=== PATIENT | female | born 1950 | race Caucasian/White ===

== ENCOUNTER 2024-05-15 23:39 | Inpatient (IN) | payer MEDICARE, OTHER, SELFPAY ==
[2024-05-13 17:29] VITALS: BP 157/82
--- NOTE | 2024-05-13 17:52 | ED.PDOC.TRB ---
ED Provider Triage
-
A medical screening examination has been initiated by a qualified medical provider. Based on the assessment performed at this time, it has been determined that an emergent medical condition may exist and the patient has been informed that further
medical evaluation and possible additional diagnostic testing may be needed.
HPI: This is a medical evaluation conducted in person to initiate diagnostic evaluation and provide initial therapeutics. Please see further documentation by the treating clinician.
GENERAL: Alert , in no apparent distress
LUNGS: No acute respiratory distress
NEUROLOGICAL: Alert and oriented
SKIN: Skin intact. No visible changes.
MUSCULOSKELETAL: seated in wheelchair
able to flex right hip well, painful L hip flexion
strength seems intact B/L LE
sensation intact to gross touch
PSYCH: Normal and appropriate interaction.
73 lilly/o F chornic lower back pain adn lumbar radiculopathy/spinal stensosis, managed by dr. antonio currently
has intrathecal pump
oral break through meds
3 weeks worsening pain in same location b/l hips down backs of legs to thighs
typical pattern
went to [facility] and got 2 injections for trigger points
has not had improvement
no new urinary incontinenfce from baseline stress incontinence
pt does have strength and sensation in her legs
do not suspect cuada equina
likely acute exac of chornic spinal stenosis pain
will order some screening xrays
pt has been doing some packing getting ready to move
[2024-05-13 19:55] LABS: Urine Albumin Negative (Neg - Trace); Urine Bilirubin Negative (Negative); Urine Character Clear (Clear); Urine Color Yellow; Urine Glucose Negative (Negative); Urine Ketone Negative (Negative); Urine Leukocyte 1+ (Negative); Urine Nitrite Negative (Negative); Urine Occult Blood Trace (Negative); Urine Specific Gravity 1.015 (<1.030); Urine Urobilinogen Negative (Neg - 1+)
[2024-05-13 20:24] LABS: Urine Bacteria Few (Negative); Urine Red Blood Cell 0-2 /HPF (0-2); Urine Squamous Cell >30 /LPF (Few)
--- NOTE | 2024-05-13 20:30 | ED.GENMED ---
History of Present Illness
General
Chief Complaint: Gait Dysfunction
Source: patient
Exam Limitations: none
Time Seen by Provider: 05/13/24 19:40
Nursing documentation reviewed up to this point in time: agreed with
History of Present Illness
History of Present Illness:
Patient is a 73-year-old female with chronic back pain who follows with Dr. Narvaez. She started with pain behind her posterior thighs and buttocks for the past 2 and half weeks. She saw Dr. Narvaez 1 week ago and was given trigger point
injections however symptoms have not improved. She now feels that her legs cannot hold her. She also complains of pain she nor in her bilateral thighs and buttocks however the pain stops at her knees She normally does not walk with a walker
however now has been using walker as she feels that she is going to fall.. She denies any bowel or bladder incontinence. She denies any numbness tingling in her legs. She denies any urinary dysuria however has noticed increased frequent
urination.
Past History
Past History
ED Past Medical History: Arrthythmia (afib), Asthma, CAD, CHF, COPD, GERD, Psychiatric and Other (chronic back pain with multiple compression fractures on morphine pump, followed by pain management, headaches, bipolar, depression, difficulty with
balance, CPAP, asthma, GERD, DJD,)
ED Past Surgical History: Orthopedic
Social History
Tobacco: Non-smoker
Alcohol: None
Review of Systems
Review of Systems
Allergies reviewed?: Yes
All Other Systems: ROS reviewed and negative except as documented in HPI and ROS
Constitutional: Reports no symptoms; Denies fever, fatigue or chills
Respiratory: Reports no symptoms
Cardiac: Reports no symptoms
ABD/GI: Reports no symptoms
Musculoskeletal: Reports other (b/l leg pain/weakness)
Skin: Reports no symptoms
Neurological: Denies numbness
Psychiatric: Reports no symptoms
Phy Exam
General Physical Exam
General Presentation: no apparent distress
General age: appears stated age
General Skin: warm and dry
General Habitus: elderly
General Mental: alert
General Hydration: appears well hydrated
Neurological Exam
Neurological Exam: alert, oriented x3 and other (Patient with normal distal sensation to buttocks bilateral lower extremities able to lift both legs off the stretcher normal patellar reflexes bilaterally)
[place] Coma Scale
Eye Opening: Spontaneous
Verbal Response: Oriented
Motor Response: Obeys Commands
GCS Total Score: 15
Musculoskeletal Exam
Musculoskeletal Exam: full ROM
Skin Exam
Skin Exam: normal color and warm/dry
Psychiatric Exam
Psychiatric Exam: normal mood/affect
Course
Orders/Labs/Results
Orders:
Orders
05/13/24 17:51
CR Hips TADEO w/wo Pel Min 5 Vw* Urgent
Reason For Exam: b/l hip pain
Include a pelvis x-ray?: Yes
Lumbar Spine Complete, 4 View [CR Lumbar Spine Comp Min 4 Vw*] Urgent
Comment:
Reason For Exam: lower back pain/radiculopathy worse than usual
05/13/24 19:26
Urinalysis Reflex To Culture Urgent
Date Specimen was Collected: 05/13/24
Time Specimen was Collected: 19:24
Urine Microscopic Reflex Cult Urgent
Urine Culture Urgent
ANIBAL Source: U
Specimen Description:
Date Specimen was Collected: 05/13/24
Time Specimen was Collected: 19:24
05/13/24 22:03
Complete Blood Count/With Diff Urgent
Comprehensive Metabolic Panel Urgent
05/13/24 23:38
Admit/Transfer Patient As Directed
Co-Sign Provider:
Level of Care: Observation services
Assign to:: Medical/Surgical
Physician / Group: [email or web address]
Diagnosis: lumbar radiculopathy
PRN Pain Medication Management As Directed
May give lesser potent ordered pain med per pt: Yes
preference::
Protocol:: Medication orders for pain may be administered in a
manner that supports deferring to patient preference
when the pt is:
- Requesting an ordered lesser potent pain medication.
Least to most potent pain medications are defined
as: acetaminophen < NSAID < tramadol < opioids
(morphine, oxycodone, hydromorphone).
- Requesting a lesser dose of the same medication IF
ORDERED.
- Requesting a less intrusive route of administration
if both routes are prescribed by the provider (PO <
IV).
05/13/24 23:39
Code Status As Directed
Resuscitation Status: Do not resuscitate
Reached after discussion with pt or family/Healthcare POA: Yes
DNR Bracelet Application ONCE
05/14/24 01:49
HYDROmorphone [Dilaudid] 0.5 mg IV Q4HPRN PRN
Loratadine [Claritin] 10 mg PO QPMPRN PRN
Meclizine [Antivert] 25 mg PO Q8HPRN PRN
Polyethylene Glycol Powder [Miralax] 17 grams PO DAILYPRN PRN
Simethicone [Mylicon] 80 mg PO TIDPRN PRN
phlkrio-macedermdqoki-tgyjyxbs [Excedrin Migraine] 1 tablet PO Q6HPRN PRN
ferric carboxymaltose [Injectafer] 750 mg IV UD
oxycodone-acetaminophen 1 tablet PO Q8HPRN PRN
05/14/24 01:49
MR Lumbar Without Contrast Routine
Comment:
Reason For Exam: radiculopathy sxs
Recent pill cam endoscopy?: No
Activity As Directed
Activity Level: As Tolerated
Vital Signs As Directed
Frequency: Per unit guidelines
Ot Eval And Treat Routine
Pt Eval And Treat Routine
Activity Level: As Tolerated
DX Deep Vein Thrombosis Video Routine
05/14/24 04:29
Complete Blood Count/No Diff IN AM
Comprehensive Metabolic Panel IN AM
05/14/24 Breakfast
Regular
At Your Request: Full Participation
Does patient need a safe tray?: No
05/14/24 08:00
Desvenlafaxine Succinate [Pristiq] 50 mg PO DAILY
Heparin 5,000 units SC Q12
Lamotrigine [Lamictal] 150 mg PO BID
Lidocaine [Lidocaine 4% Patch] 1 patch TOPICAL DAILY
Apply Lidocaine patch(s) to:: lower back/butt
Pantoprazole [Protonix] 40 mg PO DAILY
fluticasone propionate 1 spray NASAL DAILY
05/14/24 22:00
Famotidine [Pepcid] 20 mg PO HS
Quetiapine Fumarate [Seroquel] 50 mg PO HS
Abnormal Lab Results
05/13/24 05/13/24
19:26 22:03
WBC 12.8 H 10^3/uL
(4.8-10.8)
Abs Immat Gran (auto) 0.1 H 10^3/uL
(0-0.05)
Absolute Neuts (auto) 10.1 H 10^3/uL
(1.4-6.5)
Absolute Monos (auto) 1.0 H 10^3/uL
(0.1-0.6)
Neutrophils % 78.9 H %
(42.2-75.2)
Lymphocytes % 12.4 L %
(20.5-51.1)
Carbon Dioxide 31 H mmol/L
(22-30)
BUN 19 H mg/dl
(7-17)
Glucose 115 H mg/dl
(70-99)
Alkaline Phosphatase 148 H U/L
(38-126)
Ur Occult Blood Reflex Trace A
(Negative)
Leukocyte Esterase Rfl 1+ A
(Negative)
Urine Bacteria (Reflex) Few A
(Negative)
05/13/24 22:03
05/13/24 22:03
Vital Signs
Initial and Last Documented VS:
Initial Vital Signs
Temp Pulse Resp BP Pulse Ox
98.0 F 66 16 157/82 98
05/13/24 17:29 05/13/24 17:29 05/13/24 17:29 05/13/24 17:29 05/13/24 17:29
Last Documented Vital Signs
Temp Pulse Resp BP Pulse Ox
97.7 F 77 18 140/70 98
05/14/24 15:00 05/14/24 15:00 05/14/24 15:00 05/14/24 15:00 05/14/24 15:00
Cryptologist consulted with Physician
Cryptologist consulted with physician?: Yes
Name of Physician Consulted: Gibson
MDM/Problems Addressed
Differential Diagnosis Includes:
Not limited to chronic back pain radiculopathy
MDM/Problems Addressed:
Patient is a 73-year-old female with chronic back pain pain pump followed by pain management Dr. Narvaez presents to the ER complaining of bilateral thigh weakness/leg weakness for the past 2 and half weeks. She now feels that her legs cannot
carry her. On exam she has no obvious deficits and does have normal reflexes normal sensation however is very unstable unsteady on her feet despite a walker. She presently lives alone. X-rays reviewed shows chronic compression deformities of
T12-L1 and L5 similar to prior prior L3-L4 posterior spinal fusion without evidence of hardware complication; hip x-ray negative
Chronic conditions affecting care:
Chronic back pain
*Pulse Oximetry
Patient hypoxic: no
*Critical Care Note
Total Time (30-74mins, 75-104mins- exclusive of procedures): Not Applicable
ED Attending Note
-
Portions of this chart may have been created with voice recognition software.� Occasional wrong word or��sound alike� substitutions may have occurred due to the inherent limitations of voice recognition software.
Discharge Plan
Departure
Patient Disposition: Admit
Date of Disposition: 05/13/24
Time of Disposition: 21:34
Admit to: Med/Surg
Admit to doctor: hospitalist
Presentation/result/management discussed w/ accepting MD/DO: Hospitalist
Patient with high blood pressure during this ER visit?: Yes
Condition: Fair
Covid-19: Not Applicable
Discharge Problem:
Bilateral leg weakness, leg pain, Back pain
Interventions
Interventions:
*Risk Screen - Suicide Last Done: 05/14/24 01:45
*General Assessment Last Done: 05/13/24 19:10
*Neglect/Abuse Screening Last Done: 05/13/24 19:10
ED- Fall Risk Assessment Last Done: 05/13/24 19:10
*ED COVID-19 Vaccine History Last Done: 05/14/24 01:45
*Nursing Disposition Last Done: 05/14/24 01:50
ED- Neurological Assessment Last Done: 05/13/24 19:10
ED-Musculoskeletal Assessment Last Done: 05/13/24 19:10
ED Swallowing Screen Last Done: 05/13/24 19:15
Discharge Date and Time
Discharge Date/Time: 05/14/24 01:50
[2024-05-13 20:45] VITALS: BP 162/87
[2024-05-13 22:35] LABS: % Basophils 0.2 % (0-2); % Eosinophils 0.5 % (0-6); % Immature Granulocytes 0.5 % (0-0.5); % Lymphocytes 12.4 % (20.5-51.1); % Monocytes 7.5 % (1.7-9.3); % Neutrophils 78.9 % (42.2-75.2); Absolute Eosinophils 0.1 10^3/uL (0-0.7); Absolute Immature Granulocytes 0.1 10^3/uL (0-0.05); Absolute Lymphocytes 1.6 10^3/uL (1.2-3.4); Absolute Neutrophils 10.1 10^3/uL (1.4-6.5); Hematocrit 39.1 % (37.0-47.0); Hemoglobin 13.1 g/dL (12.0-16.0); Mean Corp Hgb Conc. 33.5 g/dL (33.0-37.0); Mean Corpuscular Volume 86.7 fL (81.0-99.0); Mean Platelet Volume 8.5 fL (7.4-10.4); Nucleated Red Blood Cells % 0 %; Platelet Count 249 10^3/uL (130-400); Red Blood Cell Count 4.51 10^6/uL (4.20-5.40); White Blood Cell Count 12.8 10^3/uL (4.8-10.8)
[2024-05-13 22:54] LABS: ALT (SGPT) 20 U/L (0-35); AST (SGOT) 22 U/L (14-36); Albumin 4.4 g/dl (3.5-5.0); Alkaline Phosphatase 148 U/L (38-126); Blood Urea Nitrogen 19 mg/dl (7-17); Calcium 9.5 mg/dl (8.4-10.2); Carbon Dioxide 31 mmol/L (22-30); Chloride 100 mmol/L (98-107); Glucose 115 mg/dl (70-99); Potassium 4.3 mmol/L (3.5-5.1); Sodium 139 mmol/L (135-145); Total Bilirubin 0.8 mg/dl (0.2-1.3); eGFR > 60.00
--- NOTE | 2024-05-13 23:42 | HPS.HSE ---
Family Physician
-
Family Physician: Dana Pitts
Chief Complaint
-
butt pain
History of Present Illness
73-year-old female past medical history of chronic back pain status post laminectomy with morphine pump follows with Dr. Narvaez, iron deficiency anemia, GERD, asthma, obstructive sleep apnea, bipolar disorder, presenting with severe posterior
thigh and buttock pain for the past 2 and a 1/2 weeks. She was given Medrol Dosepak without improvement in pain. She has chronic lower back pain which is at baseline and manageable. She saw Dr. Narvaez 1 week ago and was given trigger point
injections but symptoms have not improved. She now feels that her legs cannot hold her. She normally does not require assistance to walk but has been using a walker since she feels like she is going to fall. Denies any bowel or bladder
incontinence. Denies any numbness or tingling in her legs. She has noticed increased urinary frequency. She denies any fevers or chills.
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
Medical History
Past Medical History
Past Medical History: Reports Other (chronic back pain status post laminectomy with morphine pump follows with Dr. Narvaez, iron deficiency anemia, GERD, asthma, obstructive sleep apnea, bipolar disorder,)
Past Surgical History: Reports Other (Orthopedic)
Social History
Tobacco: Non-smoker
Alcohol: None
Drug: None
Family History
Family History: Not pertinent
Allergies / Home Medications
Allergies reflects when Allergies were last updated in [facility].
Home Medications with original date entered in [facility]
Allergy/Medication List:
Allergies
Allergy/AdvReac Type Severity Reaction Status Date / Time
adhesive tape Allergy BLISTERS Verified 05/13/24 17:32
albuterol Allergy FEEL FAINT Verified 05/13/24 17:32
amoxicillin Allergy >10YRS AGO Verified 05/13/24 17:32
Hives on
elbows no
anaphylaxis.
Tolerates
ceftin
budesonide [From Symbicort] Allergy jitters, Verified 05/13/24 17:32
TREMORS
clarithromycin Allergy Unknown Verified 05/13/24 17:32
erythromycin base Allergy Unknown Verified 05/13/24 17:32
fluticasone Allergy Triggers Verified 05/13/24 17:32
[From Advair Diskus] Headache
formoterol [From Symbicort] Allergy jitters Verified 05/13/24 17:32
ketamine Allergy DIFFICULTY Verified 05/13/24 17:32
WAKING
salmeterol Allergy migrane Verified 05/13/24 17:32
[From Advair Diskus]
albuterol Allergy FEELS FAINT Uncoded 05/13/24 17:32
nasocort Allergy migraine Uncoded 05/13/24 17:32
seravent Allergy migraine Uncoded 05/13/24 17:32
Home Medications
Intrathecal Morphine 0.47511 mg intrathecal DAILY Pain 11/21/19
loratadine 10 mg tablet 10 mg PO QPMPRN PRN allergy symp 11/21/19
famotidine 20 mg tablet 20 mg PO HS Gastrointestinal issue 12/16/20
omeprazole 40 mg capsule,delayed release 40 mg PO DAILY Gastrointestinal issue 12/16/20
denosumab 60 mg/mL subcutaneous syringe (Prolia) 60 mg SC [id number] 01/06/22
ferric carboxymaltose 50 mg iron/mL intravenous solution (Injectafer) 750 mg IV UD 01/06/22
polyvinyl alcohol-povidone (PF) 1.4 %-0.6 % eye drops in a dropperette (Refresh Classic (PF)) 1 - 2 drops BOTH EYES QIDPRN PRN dry eyes 01/06/22
simethicone 80 mg chewable tablet (Gas Relief 80 (simethicone)) 80 mg PO TIDPRN PRN gas relief 01/06/22
lcdvvcf-fmtygvwfjehgb-rilesdey 250 mg-250 mg-65 mg tablet (Excedrin Migraine) 1 tab PO Q6HPRN PRN migraine 05/13/24
desvenlafaxine 50 mg tablet,extended release 24 hr 50 mg PO DAILY 05/13/24
fluticasone propionate 50 mcg/actuation nasal spray,suspension 1 spray intranasal DAILY 05/13/24
lamotrigine 150 mg tablet 150 mg PO BID 05/13/24
meclizine 25 mg tablet 25 mg PO Q8HPRN PRN nausea or vertigo 05/13/24
oxycodone-acetaminophen 7.5 mg-325 mg tablet 1 tab PO Q8HPRN PRN severe pain 05/13/24
polyethylene glycol 3350 17 gram oral powder packet 17 grams PO DAILYPRN PRN constipation 05/13/24
quetiapine 50 mg tablet 50 mg PO HS 05/13/24
Review of Systems
-
History Source: Patient
A 12 point ROS was completed and negative except as noted: Yes
Constitutional: Reports No Symptoms
EENT: Reports No Symptoms
Respiratory: Reports No Symptoms
Cardiac: Reports No Symptoms
Abdomen/GI: Reports No Symptoms
: Reports No Symptoms
Musculoskeletal: Reports See HPI
Skin: Reports No Symptoms
Neurological: Reports No Symptoms
Endocrine: Reports No Symptoms
Hematologic/Lymphatic: Reports No Symptoms
Psych: Reports No Symptoms
Physical Exam
Vital Signs
Vital Signs
Temp Pulse Resp BP Pulse Ox
98.0 F 63 16 162/87 99
05/13/24 17:29 05/13/24 20:45 05/13/24 20:45 05/13/24 20:45 05/13/24 20:45
Physical Exam
General: Well Developed, Well Nourished and No Apparent Distress
HEENT: NormoCephalic, Moist mucous membranes and Atraumatic
Respiratory: Clear
Cardiac: S1/S2 and Regular Rhythm; No Murmur or Rub
GI: Soft, Non Tender, Non Distended and Normal Bowel Sounds; No Organomegaly
Rectal: Deferred by Provider
Musculoskeletal: No Clubbing, No Cyanosis and No Edema
Skin: No Rash
Neuro: Nonfocal/grossly intact
Laboratory Results
-
05/13/24 22:03
05/13/24 22:03
Laboratory Results
Total Bilirubin 0.8 mg/dl (0.2-1.3) 05/13/24 22:03
AST 22 U/L (14-36) 05/13/24 22:03
ALT 20 U/L (0-35) 05/13/24 22:03
Alkaline Phosphatase 148 U/L (38-126) H 05/13/24 22:03
Data Reviewed
-
Lab Data: Labs Reviewed by me
Old Records: Reviewed
Impression/Plan
-
IMPRESSION:
PLAN:
# Acute on chronic bilateral lumbar radicular pain with ambulatory dysfunction
# Chronic back pain status post laminectomy/spinal fusion/morphine pump
-Lumbar x-ray shows compression deformities of T12, L1, L5 vertebral body similar to prior, prior L3-L4 posterior spinal fusion without evidence of hardware complication
-Continue Percocet
-IV Dilaudid for breakthrough pain
-Lidocaine patch
-UA negative for UTI
-MRI lumbar spine was recommended by Dr. Narvaez, however patient concerned that she cannot stay still for accurate MRI results, but can attempt tomorrow
-PT/OT
Iron deficiency anemia
GERD
-Continue Pepcid, omeprazole
Asthma/COPD
Obstructive sleep apnea
Bipolar disorder
-Continue desvenlafaxine, Lamictal, Seroquel
Chronic constipation secondary to opiates
-Continue bowel regimen
DNR/DNI
DVT prophylaxis�heparin
Regular diet
[2024-05-14] VITALS (7 sets, daily range): BP systolic 140–184; BP diastolic 70–83; PULSE 76–90; O2SAT 98; BMI 33.3
--- NOTE | 2024-05-14 02:59 | PTCARENOTE ---
01:45 pt re'cd from ER , able to transfer from bed to recliner with the assist device walker (her own ).On assessment on left lower back palpated an internal pain pump. vs WNL, pt oriented to unit.
[2024-05-14 06:20] LABS: Hemoglobin 13.4 g/dL (12.0-16.0); Mean Corp Hgb Conc. 33.5 g/dL (33.0-37.0); Mean Corpuscular Hgb 29.6 pg (27.0-31.0); Mean Corpuscular Volume 88.3 fL (81.0-99.0); Mean Platelet Volume 8.7 fL (7.4-10.4); Platelet Count 246 10^3/uL (130-400); Red Blood Cell Count 4.53 10^6/uL (4.20-5.40); Red Cell Dist. Width 12.9 % (11.5-14.5); White Blood Cell Count 11.3 10^3/uL (4.8-10.8)
[2024-05-14 06:48] LABS: ALT (SGPT) 20 U/L (0-35); AST (SGOT) 22 U/L (14-36); Albumin 4.5 g/dl (3.5-5.0); Alkaline Phosphatase 164 U/L (38-126); Blood Urea Nitrogen 17 mg/dl (7-17); Calcium 9.3 mg/dl (8.4-10.2); Carbon Dioxide 24 mmol/L (22-30); Chloride 102 mmol/L (98-107); Estimated Creatinine Clearance 91 ml/min; Glucose 112 mg/dl (70-99); Potassium 4.3 mmol/L (3.5-5.1); Sodium 140 mmol/L (135-145); Total Protein 6.9 g/dl (6.3-8.2); eGFR > 60.00
--- NOTE | 2024-05-14 07:37 | W.PN.HOSP.TC ---
Today's Communication/Plan
-
pending MRI, discussed with MRI dept, anesthesia assistance with MRI requested
pain control
PT/OT
Assessment / Plan
Assessment / Plan
Physical Exam
General: Obese mild mod Distress due to pain since improved with pain meds, comfortable
HEENT: NormoCephalic, Moist mucous membranes and Atraumatic
Respiratory: Clear
Cardiac: S1/S2 and Regular Rhythm; No Murmur or Rub
GI: Soft, Non Tender, Non Distended and Normal Bowel Sounds; No Organomegaly
Musculoskeletal: No Clubbing, No Cyanosis and No Edema, left sided back palpable morphine pump no significant erythema tenderness
Skin: No Rash
Neuro: Nonfocal/grossly intact
HPI 73-year-old female past medical history of chronic back pain status post laminectomy with morphine pump follows with Dr. Narvaez, iron deficiency anemia, GERD, asthma, obstructive sleep apnea, bipolar disorder, presenting with severe posterior
thigh and buttock pain for the past 2 and a 1/2 weeks. She was given Medrol Dosepak without improvement in pain. She has chronic lower back pain which is at baseline and manageable. She saw Dr. Narvaez 1 week ago and was given trigger point
injections but symptoms have not improved. She now feels that her legs cannot hold her. She normally does not require assistance to walk but has been using a walker since she feels like she is going to fall. Denies any bowel or bladder
incontinence. Denies any numbness or tingling in her legs. She has noticed increased urinary frequency. She denies any fevers or chills. 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
# Acute on chronic bilateral lumbar radicular pain with ambulatory dysfunction
# Chronic back pain status post laminectomy/spinal fusion/morphine pump
-Lumbar x-ray shows compression deformities of T12, L1, L5 vertebral body similar to prior, prior L3-L4 posterior spinal fusion without evidence of hardware complication
-home Percocet not available with same dosage proportions in hospital, medication was hence split, tylenol 325 mg made scheduled Q4HWA and oxycodone 7.5 mg Q8HPRN
-IV Dilaudid for breakthrough pain
-Lidocaine patch
-UA negative for UTI
-MRI lumbar spine with anesthesia assistance requested, per patient has difficulty lying flat for MRI and light sedation has been attempted before without success.
-PT/OT
-neurosurgery eval
Iron deficiency anemia
GERD
-Continue Pepcid, omeprazole
Asthma/COPD
Obstructive sleep apnea
Bipolar disorder
-Continue desvenlafaxine, Lamictal, Seroquel
Chronic constipation secondary to opiates
-Continue bowel regimen
PT/OT
DNR/DNI
DVT prophylaxis�heparin
Regular diet
I spent a total of 50 minutes with the patient or on the floor. More than 50% of this time involved counseling and coordination of care.
Anticipated Discharge: 24 - 48 hours
Subjective/Interval History
-
Date of Service: May 14, 2024
Patient shaking uncomfortable due to pain. Since improved with pain meds oxycodone and dilaudid. Continues to endorse weakness lower ext's concern legs will give out. Denies numbness. Endorses urinary incontinence but reports this has been
present since her spine surgery 5 years ago.
Objective Data
-
Labs:
Laboratory Results
05/13/24 05/14/24
22:03 04:29
WBC 12.8 H 11.3 H
Hgb 13.1 13.4
Hct 39.1 40.0
Plt Count 249 246
Sodium 139 140
Potassium 4.3 4.3
Chloride 100 102
Carbon Dioxide 31 H 24
BUN 19 H 17
Creatinine 0.8 0.7
Glucose 115 H 112 H
Calcium 9.5 9.3
Total Bilirubin 0.8 1.0
AST 22 22
ALT 20 20
Alkaline Phosphatase 148 H 164 H
Vital Signs:
Vital Signs
Temp Pulse Resp BP Pulse Ox
98.5 F 54 18 140/78 99
05/14/24 02:01 05/14/24 02:01 05/14/24 02:01 05/14/24 02:01 05/14/24 02:01
I&O
05/13/24 05/14/24 05/15/24
06:59 06:59 06:59
Intake Total 240 / 240
Balance 240 / 240
[2024-05-14] MEDS: HEPARIN 5000 UNITS SC (08:18)
[2024-05-14] MEDS: LIDOCAINE 4% PATCH 1 PATCH TOPICAL (08:18)
[2024-05-14] MEDS: PRISTIQ 50 MG PO (08:18)
[2024-05-14] MEDS: LAMICTAL 150 MG PO ×2 (08:18→19:37)
[2024-05-14] MEDS: PROTONIX 40 MG PO (08:19)
[2024-05-14] MEDS: ROXICODONE 7.5 MG PO ×2 (09:41→18:12)
[2024-05-14] MEDS: DILAUDID 0.5 MG IV (10:06)
--- NOTE | 2024-05-14 11:02 | CM ---
CM met with pt bedside
Pt resides alone in a 1SH with [address] at [address] [address]
Pt is independent with her ADLs
She does not use an AD throughout home, in community utilizes walking sticks
Pt recently closed to [facility]
Pt notes no financial insecurities
PCP- Dana Pitts
Rx- [facility] [address]
Pt has a new POA/friend Lynn Solares who is currently in [place] on a trip
Updated contact info provided to medical unit secretary
Copy of POA at home
PT/OT orders pending
Anticipate home with [facility]
Pt plans to move to [facility] on 06/14/24
Pt is OBS- [facility] verbally reviewed
Copy provided
Discharge Disposition- home, likely with service through [facility]
[2024-05-14] MEDS: TYLENOL 325 MG PO ×2 (12:00→16:39)
[2024-05-14] MEDS: HEPARIN SC (20:21)
[2024-05-14] MEDS: TYLENOL PO (20:21)
[2024-05-14] MEDS: PEPCID 20 MG PO (21:15)
[2024-05-14] MEDS: SEROQUEL 50 MG PO (21:15)
--- NOTE | 2024-05-14 21:35 | PTCARENOTE ---
pt refused sq heparin and simon Tylenol. Pt verbalizes she understands education but expresses she is walking and does not want meds.
[2024-05-15] MEDS: TYLENOL PO ×3 (00:39→20:21)
[2024-05-15] MEDS: MIRALAX 17 GRAMS PO (05:13)
[2024-05-15 06:00] VITALS: BMI 33.2
--- NOTE | 2024-05-15 06:26 | PTCARENOTE ---
pt has declined her simon Tylenol throughout the night, denies this am needing PRN Dilaudid or Percocet per pt she wants miralax for constipation and wants to hold off on pain meds. Pt did sleep well throughout the night, ambulating to restroom x3
with rw and stand by assist.
--- NOTE | 2024-05-15 07:30 | W.PN.HOSP.TC ---
Today's Communication/Plan
-
pain control
PT/OT appreciated home health, script provided case mgmt for [facility]
npo after midnight for MRI w/ sedation
possible neurosurgery eval pending MRI results
Assessment / Plan
Assessment / Plan
Physical Exam
General: Obese mild mod Distress due to pain since improved with pain meds, comfortable
HEENT: NormoCephalic, Moist mucous membranes and Atraumatic
Respiratory: Clear
Cardiac: S1/S2 and Regular Rhythm; No Murmur or Rub
GI: Soft, Non Tender, Non Distended and Normal Bowel Sounds; No Organomegaly
Musculoskeletal: No Clubbing, No Cyanosis and No Edema, left sided back palpable morphine pump no significant erythema tenderness
Skin: No Rash
Neuro: Nonfocal/grossly intact
HPI 73-year-old female past medical history of chronic back pain status post laminectomy with morphine pump follows with Dr. Narvaez, iron deficiency anemia, GERD, asthma, obstructive sleep apnea, bipolar disorder, presenting with severe posterior
thigh and buttock pain for the past 2 and a 1/2 weeks. She was given Medrol Dosepak without improvement in pain. She has chronic lower back pain which is at baseline and manageable. She saw Dr. Narvaez 1 week ago and was given trigger point
injections but symptoms have not improved. She now feels that her legs cannot hold her. She normally does not require assistance to walk but has been using a walker since she feels like she is going to fall. Denies any bowel or bladder
incontinence. Denies any numbness or tingling in her legs. She has noticed increased urinary frequency. She denies any fevers or chills. 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
# Acute on chronic bilateral lumbar radicular pain with ambulatory dysfunction
# Chronic back pain status post laminectomy/spinal fusion/morphine pump
-Lumbar x-ray shows compression deformities of T12, L1, L5 vertebral body similar to prior, prior L3-L4 posterior spinal fusion without evidence of hardware complication
-home Percocet not available with same dosage proportions in hospital, medication was hence split, tylenol 325 mg made scheduled Q4HWA and oxycodone 7.5 mg Q8HPRN
-IV Dilaudid for breakthrough pain switched to PO dilaudid 1mg
-Lidocaine patch
-UA negative for UTI
-MRI lumbar spine with anesthesia assistance requested, per patient has difficulty lying flat for MRI and light sedation has been attempted before without success.
-PT/OT appreciated home health
-discussed with neurosurgery, luann pending MRI results
-NPO after midnight for MRI w/ sedation 05/16
Iron deficiency anemia
GERD
-Continue Pepcid, omeprazole
Asthma/COPD
Obstructive sleep apnea
Bipolar disorder
-Continue desvenlafaxine, Lamictal, Seroquel
Chronic constipation secondary to opiates
-Continue bowel regimen
PT/OT
DNR/DNI
DVT prophylaxis�heparin
Regular diet
I spent a total of 40 minutes with the patient or on the floor. More than 50% of this time involved counseling and coordination of care.
Anticipated Discharge: 24 - 48 hours
Subjective/Interval History
-
Date of Service: May 15, 2024
Pain control improved. Continues to endorse weakness lower ext's though able to participate with PT/OT using rolling walker. Home health recommended
Objective Data
-
Labs:
Laboratory Results
05/15/24
06:36
WBC Pending
Hgb Pending
Hct Pending
Plt Count Pending
Sodium Pending
Potassium Pending
Chloride Pending
Carbon Dioxide Pending
BUN Pending
Creatinine Pending
Glucose Pending
Calcium Pending
Vital Signs:
Vital Signs
Temp Pulse Resp BP Pulse Ox
98.3 F 67 16 159/83 95
05/14/24 23:10 05/14/24 23:10 05/14/24 23:10 05/14/24 23:10 05/14/24 23:10
I&O
05/14/24 05/15/24 05/16/24
06:59 06:59 06:59
Intake Total 240 / 240 1560 / 1560
Balance 240 / 240 1560 / 1560
[2024-05-15 07:44] VITALS: BP 132/72
[2024-05-15 07:44] LABS: Hematocrit 40.6 % (37.0-47.0); Hemoglobin 13.6 g/dL (12.0-16.0); Mean Corp Hgb Conc. 33.5 g/dL (33.0-37.0); Mean Corpuscular Hgb 28.9 pg (27.0-31.0); Mean Corpuscular Volume 86.2 fL (81.0-99.0); Mean Platelet Volume 8.8 fL (7.4-10.4); Platelet Count 276 10^3/uL (130-400); Red Blood Cell Count 4.71 10^6/uL (4.20-5.40); Red Cell Dist. Width 13.2 % (11.5-14.5)
[2024-05-15 08:05] LABS: Blood Urea Nitrogen 22 mg/dl (7-17); Calcium 9.5 mg/dl (8.4-10.2); Carbon Dioxide 25 mmol/L (22-30); Chloride 103 mmol/L (98-107); Estimated Creatinine Clearance 80 ml/min; Glucose 123 mg/dl (70-99); Magnesium 2.3 mg/dl (1.6-2.3); Phosphorus 4.7 mg/dl (2.5-4.5); Potassium 4.4 mmol/L (3.5-5.1); Sodium 142 mmol/L (135-145); eGFR > 60.00
[2024-05-15] MEDS: ROXICODONE 7.5 MG PO ×3 (09:26→22:56)
[2024-05-15] MEDS: LIDOCAINE 4% PATCH 1 PATCH TOPICAL (09:28)
[2024-05-15] MEDS: PROTONIX 40 MG PO (09:28)
[2024-05-15] MEDS: TYLENOL 325 MG PO ×3 (09:29→16:51)
[2024-05-15] MEDS: HEPARIN SC ×2 (09:29→20:21)
[2024-05-15] MEDS: PRISTIQ 50 MG PO (09:29)
[2024-05-15] MEDS: LAMICTAL 150 MG PO ×2 (09:29→20:21)
--- NOTE | 2024-05-15 10:12 | CM ---
Patient seen bedside.
PT/OT recommending home with therapy.
Spoke with [facility], they requested a script.
TT to MD.
Plan: home with [facility] (known to them).
Patient drove to the hospital.
[facility]- please fax script for PT/OT
[2024-05-15 15:57] VITALS: BP 130/66
[2024-05-15 22:10] VITALS: BP 137/70
[2024-05-15] MEDS: PEPCID 20 MG PO (22:39)
[2024-05-15] MEDS: SEROQUEL 50 MG PO (22:39)
[2024-05-16] VITALS (8 sets, daily range): BP systolic 132–148; BP diastolic 69–86; BMI 33.4
[2024-05-16] MEDS: TYLENOL PO ×5 (01:09→17:54)
[2024-05-16] MEDS: ROXICODONE 7.5 MG PO ×3 (05:57→20:04)
[2024-05-16 07:12] LABS: Hematocrit 39.1 % (37.0-47.0); Hemoglobin 13.1 g/dL (12.0-16.0); Mean Corp Hgb Conc. 33.5 g/dL (33.0-37.0); Mean Corpuscular Hgb 30.1 pg (27.0-31.0); Mean Corpuscular Volume 89.9 fL (81.0-99.0); Mean Platelet Volume 8.6 fL (7.4-10.4); Platelet Count 249 10^3/uL (130-400); Red Blood Cell Count 4.35 10^6/uL (4.20-5.40); Red Cell Dist. Width 13.1 % (11.5-14.5); White Blood Cell Count 9.3 10^3/uL (4.8-10.8)
[2024-05-16 07:41] LABS: Blood Urea Nitrogen 25 mg/dl (7-17); Calcium 9.4 mg/dl (8.4-10.2); Carbon Dioxide 29 mmol/L (22-30); Chloride 103 mmol/L (98-107); Estimated Creatinine Clearance 91 ml/min; Glucose 117 mg/dl (70-99); Magnesium 2.3 mg/dl (1.6-2.3); Phosphorus 4.2 mg/dl (2.5-4.5); Potassium 4.6 mmol/L (3.5-5.1); Sodium 141 mmol/L (135-145); eGFR > 60.00
[2024-05-16] MEDS: LAMICTAL PO (08:00)
[2024-05-16] MEDS: LIDOCAINE 4% PATCH TOPICAL (08:00)
[2024-05-16] MEDS: HEPARIN SC ×2 (08:39→20:08)
--- NOTE | 2024-05-16 12:35 | W.PN.HOSP.TC ---
Today's Communication/Plan
-
Monitor vital signs
See plan
MRI pending
pain control
pt/ot
Assessment / Plan
Assessment / Plan
Physical Exam
General: Obese mild mod Distress due to pain since improved with pain meds, comfortable
HEENT: NormoCephalic, Moist mucous membranes and Atraumatic
Respiratory: Clear
Cardiac: S1/S2 and Regular Rhythm; No Murmur or Rub
GI: Soft, Non Tender, Non Distended and Normal Bowel Sounds; No Organomegaly
Musculoskeletal: No Clubbing, No Cyanosis and No Edema, left sided back palpable morphine pump no significant erythema tenderness
Skin: No Rash
Neuro: Nonfocal/grossly intact
HPI 73-year-old female past medical history of chronic back pain status post laminectomy with morphine pump follows with Dr. Narvaez, iron deficiency anemia, GERD, asthma, obstructive sleep apnea, bipolar disorder, presenting with severe posterior
thigh and buttock pain for the past 2 and a 1/2 weeks. She was given Medrol Dosepak without improvement in pain. She has chronic lower back pain which is at baseline and manageable. She saw Dr. Narvaez 1 week ago and was given trigger point
injections but symptoms have not improved. She now feels that her legs cannot hold her. She normally does not require assistance to walk but has been using a walker since she feels like she is going to fall. Denies any bowel or bladder
incontinence. Denies any numbness or tingling in her legs. She has noticed increased urinary frequency. She denies any fevers or chills. 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
# Acute on chronic bilateral lumbar radicular pain with ambulatory dysfunction
# Chronic back pain status post laminectomy/spinal fusion/morphine pump
-Lumbar x-ray shows compression deformities of T12, L1, L5 vertebral body similar to prior, prior L3-L4 posterior spinal fusion without evidence of hardware complication
-home Percocet not available with same dosage proportions in hospital, medication was hence split, tylenol 325 mg made scheduled Q4HWA and oxycodone 7.5 mg Q8HPRN
-IV Dilaudid for breakthrough pain switched to PO dilaudid 1mg
-Lidocaine patch
-UA negative for UTI
-MRI lumbar spine with anesthesia assistance requested, per patient has difficulty lying flat for MRI and light sedation has been attempted before without success.
-PT/OT appreciated home health
-discussed with neurosurgery, eval pending MRI results
-NPO after midnight for MRI w/ sedation 05/16
Iron deficiency anemia
GERD
-Continue Pepcid, omeprazole
Asthma/COPD
Obstructive sleep apnea
Bipolar disorder
-Continue desvenlafaxine, Lamictal, Seroquel
Chronic constipation secondary to opiates
-Continue bowel regimen
PT/OT
DNR/DNI
DVT prophylaxis�heparin
Anticipated Discharge: 24 - 48 hours
Subjective/Interval History
-
Date of Service: May 16, 2024
denies nausea
Objective Data
-
Labs:
Laboratory Results
05/16/24
07:04
WBC 9.3
Hgb 13.1
Hct 39.1
Plt Count 249
Sodium 141
Potassium 4.6
Chloride 103
Carbon Dioxide 29
BUN 25 H
Creatinine 0.7
Glucose 117 H
Calcium 9.4
Vital Signs:
Vital Signs
Temp Pulse Resp BP Pulse Ox
98.7 F 54 16 132/77 97
05/16/24 07:51 05/16/24 07:51 05/16/24 07:51 05/16/24 07:51 05/16/24 07:51
I&O
05/15/24 05/16/24 05/17/24
06:59 06:59 06:59
Intake Total 1560 / 1560 1800 / 1800
Balance 1560 / 1560 1800 / 1800
--- NOTE | 2024-05-16 12:41 | CM ---
Addendum entered by Rhea Jeronimo 05/16/24 13:03:
Patient going for MRI now at 1pm. IMM explained & signed by patient. Placed in chart.
Await results-possible neurosurgery eval pending MRI results.
PLAN: Await MRI results.
Script for [facility] was faxed previously for [facility].
Original Note:
CM attempted to visit patient.
Chart reviewed.
Patient at MRI.
Await results-possible neurosurgery eval pending MRI results.
PLAN: Await MRI results.
Script for [facility] was faxed previously for [facility].
--- NOTE | 2024-05-16 13:03 | PTCARENOTE ---
pt transported to MRI via stretcher accompanied by volunteer.
--- NOTE | 2024-05-16 16:57 | PTCARENOTE ---
pt returned from PACU at 1530 s/p MRI under anesthesia. pt assisted from stretcher to chair without incident. VSS. call [facility] in reach. pt assisted to order dinner tray. will observe.
[2024-05-16] MEDS: PRISTIQ 50 MG PO (18:03)
[2024-05-16] MEDS: PROTONIX 40 MG PO (18:04)
[2024-05-16] MEDS: LAMICTAL 150 MG PO (20:08)
[2024-05-16] MEDS: TYLENOL 325 MG PO (20:09)
[2024-05-16] MEDS: MIRALAX 17 GRAMS PO (20:20)
[2024-05-16] MEDS: SEROQUEL 50 MG PO (22:36)
[2024-05-16] MEDS: PEPCID 20 MG PO (22:37)
[2024-05-17] MEDS: TYLENOL 325 MG PO ×6 (00:26→23:36)
[2024-05-17] MEDS: TYLENOL PO ×2 (04:45→08:24)
[2024-05-17] MEDS: ROXICODONE 7.5 MG PO ×3 (06:31→18:38)
[2024-05-17 06:38] LABS: Hematocrit 39.5 % (37.0-47.0); Hemoglobin 12.7 g/dL (12.0-16.0); Mean Corp Hgb Conc. 32.2 g/dL (33.0-37.0); Mean Corpuscular Hgb 28.7 pg (27.0-31.0); Mean Corpuscular Volume 89.2 fL (81.0-99.0); Mean Platelet Volume 8.4 fL (7.4-10.4); Platelet Count 261 10^3/uL (130-400); Red Blood Cell Count 4.43 10^6/uL (4.20-5.40); Red Cell Dist. Width 13.1 % (11.5-14.5); White Blood Cell Count 8.7 10^3/uL (4.8-10.8)
[2024-05-17 07:00] VITALS: BP 137/75
[2024-05-17 07:05] LABS: Blood Urea Nitrogen 28 mg/dl (7-17); Calcium 9.5 mg/dl (8.4-10.2); Carbon Dioxide 33 mmol/L (22-30); Chloride 99 mmol/L (98-107); Estimated Creatinine Clearance 80 ml/min; Glucose 108 mg/dl (70-99); Magnesium 2.3 mg/dl (1.6-2.3); Phosphorus 4.3 mg/dl (2.5-4.5); Sodium 140 mmol/L (135-145); eGFR > 60.00
[2024-05-17] MEDS: HEPARIN SC (08:24)
[2024-05-17] MEDS: LAMICTAL 150 MG PO ×2 (08:45→19:37)
[2024-05-17] MEDS: LIDOCAINE 4% PATCH TOPICAL (08:46)
[2024-05-17] MEDS: PROTONIX 40 MG PO (08:46)
[2024-05-17] MEDS: PRISTIQ 50 MG PO (08:46)
[2024-05-17] MEDS: HEPARIN 5000 UNITS SC ×2 (08:51→19:36)
--- NOTE | 2024-05-17 11:05 | CM ---
Addendum entered by Rhea Jeronimo 05/17/24 15:49:
When patient is discharged:
[facility]- please fax script for PT/OT

Original Note:
Patient seen at bedside. IMM signed.
MRI completed yesterday.
Would like a medical records release for MRI disc & report. CM to provide.
States pain better today.
[facility] script on chart which she had previously at home.
PLAN: Discharge when stable, Home with resumption of [facility].
--- NOTE | 2024-05-17 11:31 | CON.NS ---
Chief Complaint
-
back pain
History of Present Illness
This 73-year-old female admitted with significant increase in low back pain with bilateral posterior leg pain to the level of the knee. She has a history of lumbar fusion, multiple level compression fractures. She also has an intrathecal opiate
pump which is managed by Dr. Narvaez. Her pain has been going on for 2-1/2 weeks. He is able to ambulate with a walker. MRI was completed yesterday which is available for review. Denies any weakness in her upper or lower extremities. Denies
any new numbness or tingling otherwise.
Review of Systems
-
10 point review of systems is completed negative except stated in the HPI
Medication and Allergies
Home Medications
Home Medications
�Medication �Instructions �Recorded
Intrathecal Morphine 0.70047 mg intrathecal DAILY Pain 11/21/19
loratadine 10 mg tablet 10 mg PO QPMPRN PRN allergy symp 11/21/19
famotidine 20 mg tablet 20 mg PO HS Gastrointestinal issue 12/16/20
omeprazole 40 mg capsule,delayed 40 mg PO DAILY Gastrointestinal 12/16/20
release issue
denosumab 60 mg/mL subcutaneous 60 mg SC [id number] Bone-Modifying 01/06/22
syringe (Prolia) Agent
ferric carboxymaltose 50 mg 750 mg IV UD anemia 01/06/22
iron/mL intravenous solution
(Injectafer)
polyvinyl alcohol-povidone (PF) 1 - 2 drops BOTH EYES QIDPRN PRN 01/06/22
1.4 %-0.6 % eye drops in a dry eyes
dropperette (Refresh Classic (PF))
simethicone 80 mg chewable tablet 80 mg PO TIDPRN PRN gas relief 01/06/22
(Gas Relief 80 (simethicone))
hylozgv-qspnavhtygvnp-tujqsbef 250 1 tab PO Q6HPRN PRN migraine 05/13/24
mg-250 mg-65 mg tablet (Excedrin
Migraine)
desvenlafaxine 50 mg 50 mg PO DAILY Mental 05/13/24
tablet,extended release 24 hr Health/Anxiety
fluticasone propionate 50 1 spray intranasal DAILY Congestion 05/13/24
mcg/actuation nasal
spray,suspension
lamotrigine 150 mg tablet 150 mg PO BID Seizures 05/13/24
meclizine 25 mg tablet 25 mg PO Q8HPRN PRN nausea or 05/13/24
vertigo
oxycodone-acetaminophen 7.5 mg-325 1 tab PO Q8HPRN PRN severe pain 05/13/24
mg tablet
polyethylene glycol 3350 17 gram 17 grams PO DAILYPRN PRN 05/13/24
oral powder packet constipation
quetiapine 50 mg tablet 50 mg PO HS Mental Health/Anxiety 05/13/24
Allergies
Allergies
Allergy/AdvReac Type Severity Reaction Status Date / Time
adhesive tape Allergy BLISTERS Verified 05/13/24 17:32
albuterol Allergy FEEL FAINT Verified 05/13/24 17:32
amoxicillin Allergy >10YRS AGO Verified 05/13/24 17:32
Hives on
elbows no
anaphylaxis.
Tolerates
ceftin
budesonide [From Symbicort] Allergy jitters, Verified 05/13/24 17:32
TREMORS
clarithromycin Allergy Unknown Verified 05/13/24 17:32
erythromycin base Allergy Unknown Verified 05/13/24 17:32
fluticasone Allergy Triggers Verified 05/13/24 17:32
[From Advair Diskus] Headache
formoterol [From Symbicort] Allergy jitters Verified 05/13/24 17:32
ketamine Allergy DIFFICULTY Verified 05/13/24 17:32
WAKING
salmeterol Allergy migrane Verified 05/13/24 17:32
[From Advair Diskus]
triamcinolone [From Nasacort] Allergy MIGRAINE Verified 05/15/24 16:34
Physical Exam
-
Exam:
Awake alert and oriented x 3
Cranials 2 through 12 are grossly intact
Normal sensation upper lower extremities
Reflexes normal
Motor strength test reveals 5 out of 5 upper lower extremity strength
MRI lumbar spine reveals sacral insufficiency fracture at the level of S2 extending to the right ilium however it is not completely imaged and due to this being an MRI of the lumbar spine.
Problems
-
Problem Status Onset Code
Back pain M54.9
Bilateral leg weakness R29.898
Assessment / Plan
-
Sacral insufficiency fracture
1. Weightbearing at all times
2. No surgical interventions, no need for outpatient follow-up
3. No bracing needed
4. Fracture should heal within 6 to 8 weeks
5. Patient should follow-up with Dr. Narvaez for interval increase in pain medications during healing
6. Neurosurgery will sign off please reconsult as needed
--- NOTE | 2024-05-17 11:35 | W.PN.HOSP.TC ---
Today's Communication/Plan
-
Monitor vital signs
see plan
Pain control
Patient will follow with pain management outpatient
Discharge planning
Assessment / Plan
Assessment / Plan
Physical Exam
General: Obese mild mod Distress due to pain since improved with pain meds, comfortable
HEENT: NormoCephalic, Moist mucous membranes and Atraumatic
Respiratory: Clear
Cardiac: S1/S2 and Regular Rhythm; No Murmur or Rub
GI: Soft, Non Tender, Non Distended and Normal Bowel Sounds; No Organomegaly
Musculoskeletal: No Clubbing, No Cyanosis and No Edema, left sided back palpable morphine pump no significant erythema tenderness
Skin: No Rash
Neuro: Nonfocal/grossly intact
HPI 73-year-old female past medical history of chronic back pain status post laminectomy with morphine pump follows with Dr. Narvaez, iron deficiency anemia, GERD, asthma, obstructive sleep apnea, bipolar disorder, presenting with severe posterior
thigh and buttock pain for the past 2 and a 1/2 weeks. She was given Medrol Dosepak without improvement in pain. She has chronic lower back pain which is at baseline and manageable. She saw Dr. Narvaez 1 week ago and was given trigger point
injections but symptoms have not improved. She now feels that her legs cannot hold her. She normally does not require assistance to walk but has been using a walker since she feels like she is going to fall. Denies any bowel or bladder
incontinence. Denies any numbness or tingling in her legs. She has noticed increased urinary frequency. She denies any fevers or chills. 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
# Acute on chronic bilateral lumbar radicular pain with ambulatory dysfunction
# Chronic back pain status post laminectomy/spinal fusion/morphine pump
-Lumbar x-ray shows compression deformities of T12, L1, L5 vertebral body similar to prior, prior L3-L4 posterior spinal fusion without evidence of hardware complication
-home Percocet not available with same dosage proportions in hospital, medication was hence split, tylenol 325 mg made scheduled Q4HWA and oxycodone 7.5 mg Q8HPRN
-IV Dilaudid for breakthrough pain switched to PO dilaudid 1mg
-Lidocaine patch
-UA negative for UTI
-MRI lumbar spine with anesthesia assistance requested, per patient has difficulty lying flat for MRI and light sedation has been attempted before without success.
-PT/OT appreciated home health
-discussed with neurosurgery, luann pending MRI results
-s/p MRI w/ sedation 05/16 consistent with sacral insufficiency fracture. Scoliosis with multilevel discogenic and facet degenerative changes. Chronic compression deformities. No acute vertebral compression deformity.
Patient will follow-up with Dr. Narvaez outpatient. Spoke with neurosurgery and there is no role for any surgery from their standpoint.
Iron deficiency anemia
GERD
-Continue Pepcid, omeprazole
Asthma/COPD
Obstructive sleep apnea
Bipolar disorder
-Continue desvenlafaxine, Lamictal, Seroquel
Chronic constipation secondary to opiates
-Continue bowel regimen
PT/OT
DNR/DNI
DVT prophylaxis�heparin
Anticipated Discharge: Within 24 hours
Subjective/Interval History
-
Date of Service: May 17, 2024
denies nausea
Objective Data
-
Labs:
Laboratory Results
05/17/24
06:00
WBC 8.7
Hgb 12.7
Hct 39.5
Plt Count 261
Sodium 140
Potassium 5.0
Chloride 99
Carbon Dioxide 33 H
BUN 28 H
Creatinine 0.8
Glucose 108 H
Calcium 9.5
Vital Signs:
Vital Signs
Temp Pulse Resp BP Pulse Ox
98.1 F 61 18 137/75 99
05/17/24 07:00 05/17/24 07:00 05/17/24 07:00 05/17/24 07:00 05/17/24 08:30
I&O
05/16/24 05/17/24 05/18/24
06:59 06:59 06:59
Intake Total 1800 / 1800 990 / 990
Balance 1800 / 1800 990 / 990
[2024-05-17 15:20] VITALS: BP 132/66
[2024-05-17] MEDS: PEPCID 20 MG PO (21:33)
[2024-05-17] MEDS: MIRALAX 17 GRAMS PO (21:33)
[2024-05-17] MEDS: SEROQUEL 50 MG PO (21:33)
[2024-05-17 23:00] VITALS: BP 139/69
[2024-05-18] MEDS: ROXICODONE 7.5 MG PO ×2 (01:20→08:07)
[2024-05-18] MEDS: TYLENOL PO (04:59)
[2024-05-18 07:05] VITALS: BP 137/71
[2024-05-18 07:26] LABS: Blood Urea Nitrogen 28 mg/dl (7-17); Calcium 9.3 mg/dl (8.4-10.2); Carbon Dioxide 31 mmol/L (22-30); Chloride 100 mmol/L (98-107); Estimated Creatinine Clearance 91 ml/min; Glucose 103 mg/dl (70-99); Magnesium 2.4 mg/dl (1.6-2.3); Phosphorus 4.1 mg/dl (2.5-4.5); Potassium 4.9 mmol/L (3.5-5.1); Sodium 142 mmol/L (135-145); eGFR > 60.00
[2024-05-18] MEDS: PROTONIX 40 MG PO (08:08)
[2024-05-18] MEDS: PRISTIQ 50 MG PO (08:08)
[2024-05-18] MEDS: LAMICTAL 150 MG PO (08:08)
[2024-05-18] MEDS: LIDOCAINE 4% PATCH TOPICAL (08:09)
[2024-05-18] MEDS: HEPARIN 5000 UNITS SC (08:09)
[2024-05-18] MEDS: TYLENOL 325 MG PO (08:09)
--- NOTE | 2024-05-18 10:17 | W.PN.HOSP.TC ---
Today's Communication/Plan
-
Monitor vital signs see plan
Pain control
Discharge today
Time of discharge 37 minutes
Assessment / Plan
Assessment / Plan
Physical Exam
General: Obese mild mod Distress due to pain since improved with pain meds, comfortable
HEENT: NormoCephalic, Moist mucous membranes and Atraumatic
Respiratory: Clear
Cardiac: S1/S2 and Regular Rhythm; No Murmur or Rub
GI: Soft, Non Tender, Non Distended and Normal Bowel Sounds; No Organomegaly
Musculoskeletal: No Clubbing, No Cyanosis and No Edema, left sided back palpable morphine pump no significant erythema tenderness
Skin: No Rash
Neuro: Nonfocal/grossly intact
HPI 73-year-old female past medical history of chronic back pain status post laminectomy with morphine pump follows with Dr. Narvaez, iron deficiency anemia, GERD, asthma, obstructive sleep apnea, bipolar disorder, presenting with severe posterior
thigh and buttock pain for the past 2 and a 1/2 weeks. She was given Medrol Dosepak without improvement in pain. She has chronic lower back pain which is at baseline and manageable. She saw Dr. Narvaez 1 week ago and was given trigger point
injections but symptoms have not improved. She now feels that her legs cannot hold her. She normally does not require assistance to walk but has been using a walker since she feels like she is going to fall. Denies any bowel or bladder
incontinence. Denies any numbness or tingling in her legs. She has noticed increased urinary frequency. She denies any fevers or chills. 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
# Acute on chronic bilateral lumbar radicular pain with ambulatory dysfunction
# Chronic back pain status post laminectomy/spinal fusion/morphine pump
-Lumbar x-ray shows compression deformities of T12, L1, L5 vertebral body similar to prior, prior L3-L4 posterior spinal fusion without evidence of hardware complication
-home Percocet not available with same dosage proportions in hospital, medication was hence split, tylenol 325 mg made scheduled Q4HWA and oxycodone 7.5 mg Q8HPRN
-IV Dilaudid for breakthrough pain switched to PO dilaudid 1mg
-Lidocaine patch
-UA negative for UTI
-MRI lumbar spine with anesthesia assistance requested, per patient has difficulty lying flat for MRI and light sedation has been attempted before without success.
-PT/OT appreciated home health
-discussed with neurosurgery, eval pending MRI results
-s/p MRI w/ sedation 05/16 consistent with sacral insufficiency fracture. Scoliosis with multilevel discogenic and facet degenerative changes. Chronic compression deformities. No acute vertebral compression deformity.
Patient will follow-up with Dr. Narvaez outpatient. Spoke with neurosurgery and there is no role for any surgery from their standpoint. Spoke with Dr. Narvaez and he will follow-up with patient outpatient
Iron deficiency anemia
GERD
-Continue Pepcid, omeprazole
Asthma/COPD
Obstructive sleep apnea
Bipolar disorder
-Continue desvenlafaxine, Lamictal, Seroquel
Chronic constipation secondary to opiates
-Continue bowel regimen
PT/OT
DNR/DNI
DVT prophylaxis�heparin
Anticipated Discharge: Today
Subjective/Interval History
-
Date of Service: May 18, 2024
Denies pain
Objective Data
-
Labs:
Laboratory Results
05/18/24 05/18/24
04:57 06:00
WBC Pending
Hgb Pending
Hct Pending
Plt Count Pending
Sodium 142
Potassium 4.9
Chloride 100
Carbon Dioxide 31 H
BUN 28 H
Creatinine 0.7
Glucose 103 H
Calcium 9.3
Vital Signs:
Vital Signs
Temp Pulse Resp BP Pulse Ox
98.1 F 54 18 137/71 97
05/18/24 07:05 05/18/24 07:05 05/18/24 07:05 05/18/24 07:05 05/18/24 07:05
I&O
05/17/24 05/18/24 05/19/24
06:59 06:59 06:59
Intake Total 990 / 990 2160 / 2160
Balance 990 / 990 2160 / 2160
--- NOTE | 2024-05-18 10:21 | W.DCSUMMARY ---
Discharge Summary
Discharge Data
Date of Admission: 05/15/24
Date of Discharge: 05/18/24
-
Pending Results: No
Hospital Course
73-year-old female with past medical history of chronic back pain status postlaminectomy on morphine pump, iron deficiency anemia, GERD, asthma, obstructive sleep apnea, bipolar disorder came to the hospital with acute on chronic bilateral lumbar
radicular pain with ambulatory dysfunction. Patient initially got an x-ray which showed compression deformities of T12, L1 and L5 without any evidence of hardware complication. Patient later underwent MRI with sedation which showed sacral
insufficiency fracture with chronic compression deformities. No acute vertebral compression deformity. Patient was seen by neurosurgery who recommended no surgical intervention. Patient was then instructed to follow-up with her pain management
physician outpatient. Patient was also evaluated by physical therapy who recommended home health. Once patient symptoms continue to improve, she was then discharged home with instructions to follow-up with all her physicians outpatient.
Discharge Plan
-
Patient Disposition: Home (Routine Discharge)
Discharge Diagnosis/Procedures: Acute on chronic bilateral lumbar radicular pain with ambulatory dysfunction secondary to sacral insufficiency fracture
Diet: As tolerated
Activity: As tolerated
Driving Restrictions: As prior to admission
Bathing Restrictions: None
Referrals:
Raheel Narvaez MD [Active] -
Dana Pitts NP [Family Provider] - in less than 1 week
Prescriptions:
New
lidocaine 4 % Adhesive Patch,Medicated
1 patch topical DAILY Qty: 30 0RF
Continued
loratadine 10 MG tablet
10 mg PO QPMPRN PRN (Reason: allergy symp)
Intrathecal Morphine 0.2748 MG Int.Anchorman.Sp
0.76299 mg intrathecal DAILY
Patient Comments:
05/13/24: continuous drug infusion system placed by doctor
omeprazole 40 MG capsule,delayed release(DR/EC)
40 mg PO DAILY
famotidine 20 MG tablet
20 mg PO HS
simethicone [Gas Relief 80 (simethicone)] 80 MG tablet,chewable
80 mg PO TIDPRN PRN (Reason: gas relief)
Refresh Classic (PF) 10 DROPS dropperette
1 - 2 drops BOTH EYES QIDPRN PRN (Reason: dry eyes)
Prolia 60 MG/ML syringe
60 mg SC [id number]
Patient Comments:
05/13/24: Patient missed her dose in December, scheduled an appointment for tomorrow to get her next dose.
Injectafer 750 MG/15 ML solution
750 mg IV UD
lamotrigine 150 mg Tablet
150 mg PO BID
oxycodone-acetaminophen 7.5-325 mg Tablet
1 tab PO Q8HPRN PRN (Reason: severe pain)
Patient Comments:
05/13/24: last filled 04/19/24 for 90 tablets over 30 days
fluticasone propionate 50 mcg/actuation [place],Suspension
1 spray INTRANASAL DAILY
Excedrin Migraine 250-250-65 mg Tablet
1 tab PO Q6HPRN PRN (Reason: migraine)
quetiapine 50 mg Tablet
50 mg PO HS
desvenlafaxine 50 mg Tablet Extended Release 24 Hr
50 mg PO DAILY
polyethylene glycol 3350 17 GRAMS powder in packet
17 grams PO DAILYPRN PRN (Reason: constipation)
meclizine 25 MG tablet
25 mg PO Q8HPRN PRN (Reason: nausea or vertigo)
Discharge Orders:
Discharge Patient (As Directed); Ordered 05/18/24
Ordered By: Walter Rojas
Discharge Date and Time
Discharge Date/Time: 05/18/24 12:29
Print Language: [place]
--- NOTE | 2024-05-18 10:25 | CM ---
Patient seen at bedside. Patient indicated that she has [facility] coming for therapy. Patient for discharge home today. Patient IMM completed 05/17/24. CM will continue to follow for discharge planning needs.
Plan; home with [facility].
[2024-05-18 10:41] LABS: Hematocrit 37.9 % (37.0-47.0); Hemoglobin 12.6 g/dL (12.0-16.0); Mean Corp Hgb Conc. 33.2 g/dL (33.0-37.0); Mean Corpuscular Hgb 29.3 pg (27.0-31.0); Mean Corpuscular Volume 88.1 fL (81.0-99.0); Mean Platelet Volume 8.5 fL (7.4-10.4); Platelet Count 255 10^3/uL (130-400); Red Cell Dist. Width 13.1 % (11.5-14.5); White Blood Cell Count 8.7 10^3/uL (4.8-10.8)
[2024-05-18 11:12] VITALS: BP 131/67
== END 2024-05-18 12:29 | disposition home or self-care (01) | DRG 544 ==
LOC: 2 SOUTH 23:39
PROVIDERS: Internal Medicine; Nurse Practitioner; Physician Assistant; ADMITTING PHYSICIAN Hospitalist; ATTENDING PHYSICIAN Internal Medicine; EMERGENCY PHYSICIAN Emergency Medicine; FAMILY PHYSICIAN Internal Medicine
DX: M48.58XA Collapsed vertebra, not elsewhere classified, sacral and sacrococcygeal region, initial encounter for fracture (principal); I50.9 Heart failure, unspecified; D50.9 Iron deficiency anemia, unspecified; J44.89 Other specified chronic obstructive pulmonary disease; F31.9 Bipolar disorder, unspecified; M54.16 Radiculopathy, lumbar region; M48.54XA Collapsed vertebra, not elsewhere classified, thoracic region, initial encounter for fracture; M48.56XA Collapsed vertebra, not elsewhere classified, lumbar region, initial encounter for fracture; Z66 Do not resuscitate; G47.33 Obstructive sleep apnea (adult) (pediatric); K59.03 Drug induced constipation; T40.605A Adverse effect of unspecified narcotics, initial encounter; K21.9 Gastro-esophageal reflux disease without esophagitis; G89.29 Other chronic pain; I25.10 Atherosclerotic heart disease of native coronary artery without angina pectoris; I48.91 Unspecified atrial fibrillation; M19.90 Unspecified osteoarthritis, unspecified site; R03.0 Elevated blood-pressure reading, without diagnosis of hypertension; R35.0 Frequency of micturition; Z98.1 Arthrodesis status; Z79.82 Long term (current) use of aspirin; Z79.899 Other long term (current) drug therapy; Z88.0 Allergy status to penicillin; Z88.1 Allergy status to other antibiotic agents; Z88.8 Allergy status to other drugs, medicaments and biological substances
CPT/HCPCS: 72110; 72148; 73523; 80048; 80053; 81003; 81015; 83735; 84100; 85025; 85027; 87086; 97116; 97162; 97167; 97535; 99285

== ENCOUNTER → 2024-08-27 09:48 | Outpatient (REF) | payer MEDICARE, OTHER, SELFPAY ==
[2024-08-27 10:52] LABS: % Basophils 0.4 % (0-2); % Eosinophils 3.1 % (0-6); % Immature Granulocytes 0.2 % (0-0.5); % Lymphocytes 28.9 % (20.5-51.1); % Monocytes 9.4 % (1.7-9.3); Absolute Eosinophils 0.2 10^3/uL (0-0.7); Absolute Lymphocytes 1.5 10^3/uL (1.2-3.4); Absolute Monocytes 0.5 10^3/uL (0.1-0.6); Hematocrit 39.4 % (37.0-47.0); Hemoglobin 12.2 g/dL (12.0-16.0); Mean Corpuscular Hgb 29.1 pg (27.0-31.0); Mean Platelet Volume 8.7 fL (7.4-10.4); Nucleated Red Blood Cells % 0 %; Platelet Count 185 10^3/uL (130-400); Red Blood Cell Count 4.19 10^6/uL (4.20-5.40); Red Cell Dist. Width 12.6 % (11.5-14.5); White Blood Cell Count 5.1 10^3/uL (4.8-10.8)
[2024-08-27 11:08] LABS: ALT (SGPT) 20 U/L (0-35); AST (SGOT) 25 U/L (14-36); Alkaline Phosphatase 111 U/L (38-126); Blood Urea Nitrogen 17 mg/dl (7-17); Calcium 8.4 mg/dl (8.4-10.2); Carbon Dioxide 30 mmol/L (22-30); Chloride 105 mmol/L (98-107); Glucose 96 mg/dl (70-99); HDL Cholesterol 62 mg/dl; LDL Cholesterol, Calculated 97 mg/dl; Potassium 4.7 mmol/L (3.5-5.1); Sodium 142 mmol/L (135-145); Total Bilirubin 0.8 mg/dl (0.2-1.3); Total Cholesterol 172 mg/dl (50-199); Total Protein 6.2 g/dl (6.3-8.2); Triglyceride 65 mg/dl (10-149); Very Low Density Lipoprotein 13 mg/dl (0-30); eGFR > 60.00
[2024-08-27 11:23] LABS: Vitamin D, 25-OH*** 24.8 ng/mL (30-80)
[2024-08-28 20:26] LABS: Lamotrigine (Lamictal) 5.8 ug/mL (3.0-15.0)
== END ==
LOC: OLABPV 09:48
PROVIDERS: ATTENDING PHYSICIAN Internal Medicine; FAMILY PHYSICIAN Internal Medicine
DX: M81.0 Age-related osteoporosis without current pathological fracture (principal); Z51.81 Encounter for therapeutic drug level monitoring; E55.9 Vitamin D deficiency, unspecified; E78.2 Mixed hyperlipidemia
CPT/HCPCS: 36415; 80053; 80061; 80175; 82306; 85025

== ENCOUNTER → 2024-09-17 13:32 | Outpatient (REF) | payer MEDICARE, OTHER, SELFPAY | LOC: HWWDC 13:32 | PROVIDERS: ATTENDING PHYSICIAN Internal Medicine; REFERRING PHYSICIAN Internal Medicine | DX: Z12.31 Encounter for screening mammogram for malignant neoplasm of breast (principal); Z78.0 Asymptomatic menopausal state | CPT/HCPCS: 77063; 77067; 77080 ==

== ENCOUNTER → 2025-01-24 09:55 | Outpatient (REF) | payer MEDICARE, OTHER, SELFPAY ==
[2025-01-24 10:56] LABS: ALT (SGPT) 16 U/L (0-35); AST (SGOT) 23 U/L (14-36); Albumin 3.9 g/dl (3.5-5.0); Alkaline Phosphatase 68 U/L (38-126); Blood Urea Nitrogen 18 mg/dl (7-17); Calcium 9.2 mg/dl (8.4-10.2); Carbon Dioxide 31 mmol/L (22-30); Chloride 104 mmol/L (98-107); Glucose 93 mg/dl (70-99); Potassium 4.5 mmol/L (3.5-5.1); Sodium 143 mmol/L (135-145); Total Bilirubin 0.6 mg/dl (0.2-1.3); Total Protein 6.3 g/dl (6.3-8.2); eGFR > 60.00
[2025-01-24 11:12] LABS: Vitamin D, 25-OH*** 42.6 ng/mL (30-80)
== END ==
LOC: OLABPV 09:55
PROVIDERS: ATTENDING PHYSICIAN Internal Medicine
DX: M81.0 Age-related osteoporosis without current pathological fracture (principal)
CPT/HCPCS: 36415; 80053; 82306

== ENCOUNTER 2025-02-25 14:35 | Emergency (ER) | payer MEDICARE, OTHER, SELFPAY ==
[2025-02-25 14:40] VITALS: BP 189/89
[2025-02-25 14:54] LABS: % Basophils 0.3 % (0-2); % Eosinophils 0.9 % (0-6); % Immature Granulocytes 0.3 % (0-0.5); % Lymphocytes 13.6 % (20.5-51.1); % Monocytes 3.8 % (1.7-9.3); % Neutrophils 81.1 % (42.2-75.2); Absolute Eosinophils 0.1 10^3/uL (0-0.7); Absolute Monocytes 0.3 10^3/uL (0.1-0.6); Absolute Neutrophils 6.1 10^3/uL (1.4-6.5); Hematocrit 42.8 % (37.0-47.0); Hemoglobin 14.3 g/dL (12.0-16.0); Mean Corp Hgb Conc. 33.4 g/dL (33.0-37.0); Mean Corpuscular Hgb 29.1 pg (27.0-31.0); Mean Platelet Volume 8.6 fL (7.4-10.4); Nucleated Red Blood Cells % 0 %; Platelet Count 213 10^3/uL (130-400); Red Blood Cell Count 4.92 10^6/uL (4.20-5.40); Red Cell Dist. Width 12.6 % (11.5-14.5); White Blood Cell Count 7.6 10^3/uL (4.8-10.8)
[2025-02-25 15:04] LABS: INR 1.03; PT 13.8 Sec (11.4-14.6)
[2025-02-25 15:19] LABS: Troponin I < 0.012 ng/ml
[2025-02-25 15:22] LABS: ALT (SGPT) 19 U/L (0-35); AST (SGOT) 24 U/L (14-36); Albumin 4.9 g/dl (3.5-5.0); Alkaline Phosphatase 83 U/L (38-126); Blood Urea Nitrogen 16 mg/dl (7-17); Calcium 9.6 mg/dl (8.4-10.2); Carbon Dioxide 26 mmol/L (22-30); Chloride 106 mmol/L (98-107); Glucose 118 mg/dl (70-99); Potassium 4.7 mmol/L (3.5-5.1); Sodium 141 mmol/L (135-145); Total Protein 7.5 g/dl (6.3-8.2); eGFR > 60.00
--- NOTE | 2025-02-25 16:36 | ED.GENMED ---
History of Present Illness
General
Chief Complaint: Abdominal Symptoms
Time Seen by Provider: 02/25/25 16:36
History of Present Illness
History of Present Illness:
CHIEF COMPLAINT(S)
Nausea and instability.
HISTORY OF PRESENT ILLNESS
The patient is a 74-year-old female who presents with a one-month history of episodic dizziness, nausea, and an unsteady feeling, which have progressively worsened over the past few days. She resides independently at [facility] and has had negative
COVID-19 tests during her episodes of dizziness, providing reassurance of no infection. The patient reports a headache that began yesterday, described as severe around 5 PM but has since resolved. She has also experienced a decreased appetite for
the past two to three days due to nausea. The patient expressed ongoing concerns about nausea and instability alongside feeling weak despite some symptom relief at times. 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
pain pump implant. Due to her chronic condition, she is unable to sit in a bed and requested a chair for comfort. The patient also noted a sacral insufficiency fracture diagnosed previously after an MRI, which required her to rest for healing.
ADDITIONAL HISTORY OBTAINED FROM SOURCES OTHER THAN THE PATIENT
The patient mentioned that her primary care physician advised a CAT scan for her head issues but acknowledged concerns about being unable to lay flat due to discomfort.
CHRONIC MEDICAL CONDITIONS SIGNIFICANTLY AFFECTING CARE
Chronic back pain due to a botched spinal fusion, managed with a pain pump implant.
PHYSICAL EXAM
- [id number] coordination testing was normal, indicating no significant cerebellar dysfunction.
- Strength in both arms and legs appeared normal upon examination.
- General: Well appearing in no distress
- HEENT: Moist oral mucosa
- Cardiovascular: No murmurs, normal heart rate, regular rhythm, No chest wall tenderness
- Pulmonary: No respiratory distress, breath sounds are clear and equal
- Abdomen: Soft with no peritoneal signs, no tenderness
- Neurologic: Excellent strength all extremities, no coordination deficits
- Psychiatric: Appropriate mental status, normal insight and judgement
- Extremities: Nontender, no edema, moves all extremities equally
- Back: Decreased active range of motion of the thoracolumbar spine due to pain which is chronic
- Skin: No rash, no lesions
PROBLEM LIST
Acute:
- Nausea
- Instability
Chronic:
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
PLAN
Order a CAT scan of the brain given the patients current symptoms and previous headache. Discuss the possibility of accommodating her positioning needs during the scan to ensure tolerance.
DIFFERENTIAL DIAGNOSIS
The Differential Diagnosis includes, in no particular order and is not limited to:
1. Vestibular dysfunction
2. Orthostatic hypotension
3. Benign positional vertigo
4. Transient ischemic attack
5. Inner ear infection (Labyrinthitis)
6. Migraine-associated vertigo
7. Hyponatremia
8. Medication side effects
9. Cerebrovascular accident (Stroke)
10. Post-concussion syndrome
CARE-UPDATE
02/25/25 - 17:05
The attempt to perform the CT scan was unsuccessful as the patient could not tolerate any of the attempted positions.
CARE-UPDATE
02/25/25 - 17:58
Patients blood work, including cardiac markers, white blood cell count, hemoglobin, and electrolytes, all returned normal. EKG was also normal, showing no signs of heart attack. Given the improvement in symptoms since yesterday, the likelihood of
finding anything significant on a CT scan is low, and neurologically, the patient is stable. Arrangements are being considered to transport the patient home, as [facility] and have no available contacts in the area. The
use of a wheelchair van is being explored due to a lack of public transport options. The patient normally manages chronic back pain with oxycodone and acetaminophen and has been offered a dose of two 5 mg oxycodone tablets. Attempts are being made
to find some crackers or snacks for the patient.
EKG
My independent EKG interpretation is:
- Rhythm: Sinus at 56 beats per minute
- ST Segment: Non-specific ST segment changes
- Comparison: No significant change from January 06, 2022
Past History
Past History
ED Past Medical History: Arrthythmia (afib), Asthma, CAD, CHF, COPD, GERD, Psychiatric and Other (chronic back pain with multiple compression fractures on morphine pump, followed by pain management, headaches, bipolar, depression, difficulty with
balance, CPAP, asthma, GERD, DJD,)
ED Past Surgical History: Orthopedic
Social History
Tobacco: Non-smoker
Alcohol: None
Phy Exam
Physical Exam
Physical Exam:
See HPI
Course
Orders/Labs/Results
Orders:
Orders
02/25/25 14:42
EKG [Electrocardiogram (*1)] Urgent
Reason for Study: Vertigo / Dizzy
EKG- Treatment ONCE
02/25/25 14:47
Complete Blood Count/With Diff Urgent
Comprehensive Metabolic Panel Urgent
Prothrombin Time Urgent
Troponin I Urgent
02/25/25 16:45
CT Head W/o Iv Contrast Urgent
Comment:
Reason For Exam: prince instability
Abnormal Lab Results
02/25/25
14:47
Absolute Lymphs (auto) 1.0 L 10^3/uL
(1.2-3.4)
Neutrophils % 81.1 H %
(42.2-75.2)
Lymphocytes % 13.6 L %
(20.5-51.1)
Glucose 118 H mg/dl
(70-99)
02/25/25 14:47
02/25/25 14:47
Vital Signs
Initial and Last Documented VS:
Initial Vital Signs
Temp Pulse Resp BP Pulse Ox
36.7 C 86 17 189/89 99
02/25/25 14:40 02/25/25 14:40 02/25/25 14:40 02/25/25 14:40 02/25/25 14:40
Last Documented Vital Signs
Temp Pulse Resp BP Pulse Ox
36.7 C 86 17 189/89 99
02/25/25 14:40 02/25/25 14:40 02/25/25 14:40 02/25/25 14:40 02/25/25 14:40
*Critical Care Note
Total Time (30-74mins, 75-104mins- exclusive of procedures): Not Applicable
ED Attending Note
-
Portions of this chart may have been created with voice recognition software.� Occasional wrong word or��sound alike� substitutions may have occurred due to the inherent limitations of voice recognition software.
Discharge Plan
Departure
Prescriptions:
No Action
loratadine 10 MG tablet
10 mg PO QPMPRN PRN (Reason: allergy symp)
Intrathecal Morphine 0.2748 MG Int[employer]
0.92968 mg intrathecal DAILY
Patient Comments:
05/13/24: continuous drug infusion system placed by doctor
omeprazole 40 MG capsule,delayed release(DR/EC)
40 mg PO DAILY
famotidine 20 MG tablet
20 mg PO HS
simethicone [Gas Relief 80 (simethicone)] 80 MG tablet,chewable
80 mg PO TIDPRN PRN (Reason: gas relief)
Refresh Classic (PF) 10 DROPS dropperette
1 - 2 drops BOTH EYES QIDPRN PRN (Reason: dry eyes)
Prolia 60 MG/ML syringe
60 mg SC [id number]
Patient Comments:
05/13/24: Patient missed her dose in December, scheduled an appointment for tomorrow to get her next dose.
Injectafer 750 MG/15 ML solution
750 mg IV UD
lamotrigine 150 mg Tablet
150 mg PO BID
oxycodone-acetaminophen 7.5-325 mg Tablet
1 tab PO Q8HPRN PRN (Reason: severe pain)
Patient Comments:
05/13/24: last filled 04/19/24 for 90 tablets over 30 days
fluticasone propionate 50 mcg/actuation [place],Suspension
1 spray INTRANASAL DAILY
Excedrin Migraine 250-250-65 mg Tablet
1 tab PO Q6HPRN PRN (Reason: migraine)
quetiapine 50 mg Tablet
50 mg PO HS
desvenlafaxine 50 mg Tablet Extended Release 24 Hr
50 mg PO DAILY
polyethylene glycol 3350 17 GRAMS powder in packet
17 grams PO DAILYPRN PRN (Reason: constipation)
meclizine 25 MG tablet
25 mg PO Q8HPRN PRN (Reason: nausea or vertigo)
lidocaine 4 % Adhesive Patch,Medicated
1 patch topical DAILY Qty: 30 0RF
Referrals:
Dana Pitts NP [Family Provider, Internal Medicine]
Interventions
Interventions:
*Risk Screen - Suicide Last Done: 02/25/25 14:42
*General Assessment Last Done: 02/25/25 14:42
*Neglect/Abuse Screening Last Done: 02/25/25 14:42
*ED COVID-19 Vaccine History Last Done: 02/25/25 14:41
Discharge Date and Time
Print Language: UPPER SORBIAN
--- NOTE | 2025-02-25 17:06 | EDRN ---
Pt. returned w/ central processing technician, per technology strategist, pt. could not perform exam as, 'I can't lay flat', pt. refused exam.
[2025-02-25] MEDS: PERCOCET 5/325 1.5 TABLET PO (18:07)
[2025-02-25 18:33] VITALS: BP 148/88
== END 2025-02-25 18:36 | disposition home or self-care (01) ==
LOC: EMR 14:35
PROVIDERS: EMERGENCY PHYSICIAN Emergency Medicine; FAMILY PHYSICIAN Internal Medicine
DX: R51.9 Headache, unspecified (principal); I25.10 Atherosclerotic heart disease of native coronary artery without angina pectoris; I48.91 Unspecified atrial fibrillation; I50.9 Heart failure, unspecified; Z60.2 Problems related to living alone; Z98.1 Arthrodesis status
CPT/HCPCS: 99283; 80053; 84484; 85025; 85610; 93005

== ENCOUNTER → 2025-06-20 10:57 | Outpatient (REF) | payer MEDICARE, OTHER, SELFPAY ==
[2025-06-20 11:37] LABS: Hematocrit 38.2 % (37.0-47.0); Hemoglobin 12.4 g/dL (12.0-16.0); Mean Corp Hgb Conc. 32.5 g/dL (33.0-37.0); Mean Corpuscular Volume 90.7 fL (81.0-99.0); Nucleated Red Blood Cells % 0 %; Platelet Count 196 10^3/uL (130-400); Red Cell Dist. Width 12.8 % (11.5-14.5)
[2025-06-20 11:59] LABS: ALT (SGPT) 15 U/L (0-35); AST (SGOT) 19 U/L (14-36); Albumin 4.2 g/dl (3.5-5.0); Alkaline Phosphatase 71 U/L (38-126); Blood Urea Nitrogen 16 mg/dl (7-17); Calcium 9.1 mg/dl (8.4-10.2); Carbon Dioxide 34 mmol/L (22-30); Chloride 104 mmol/L (98-107); Glucose 97 mg/dl (70-99); Potassium 4.7 mmol/L (3.5-5.1); Sodium 141 mmol/L (135-145); Total Protein 6.4 g/dl (6.3-8.2); eGFR > 60.00
== END ==
LOC: OLABPV 10:57
PROVIDERS: ATTENDING PHYSICIAN Internal Medicine
DX: R51.9 Headache, unspecified (principal); G89.29 Other chronic pain; R53.83 Other fatigue
CPT/HCPCS: 36415; 80053; 84443; 85025; 85652

== ENCOUNTER → 2025-07-29 10:39 | Outpatient (REF) | payer MEDICARE, OTHER, SELFPAY ==
[2025-07-29 12:13] LABS: HDL Cholesterol 54 mg/dl; LDL Cholesterol, Calculated 97 mg/dl; Very Low Density Lipoprotein 22 mg/dl (0-30)
[2025-07-29 12:59] LABS: Vitamin D, 25-OH*** 41.1 ng/mL (30-80)
== END ==
LOC: OLABPV 10:39
PROVIDERS: ATTENDING PHYSICIAN Internal Medicine
DX: E78.2 Mixed hyperlipidemia (principal); E55.9 Vitamin D deficiency, unspecified; Z68.41 Body mass index [BMI] 40.0-44.9, adult
CPT/HCPCS: 36415; 80061; 82306